=== PATIENT | male | born 1965 | race Caucasian/White ===

== ENCOUNTER 2016-06-17 19:35 | Inpatient (IN) | payer OTHER ==
[~2016-06-17] VITALS: Ht 162.5 cm; Wt 98.6 kg
--- NOTE | ~2016-06-17 | EKG ---
[place], [place] ELECTROCARDIOGRAM REPORT NAME: PASCUAL SAXENA UNIT #: [id number] ROOM: 411 DOCTOR: MARÍA EDGAR MD BIRTHDATE: [birth year] DOS: 06/17/2016 TIME: 19:55. Sinus rhythm, normal electrocardiogram. MARÍA EDGAR MD CM:EKGRPT:ELECTROCARDIOGRAM REPORT [id number] MARÍA EDGAR MD
[~2016-06-17 19:35] MED LIST: ATARAX25 MG PO; CIPRO500 MG PO; CIPRODEX 0.3%-7.5 ML OT; CYMBALTA20 MG PO; DEPAKOTE250 MG PO; FAMVIR500 MG PO; HYDROCODONE BIT1 T11 PO; KEFLEX500 MG PO; MOTRIN800 MG PO; NEURONTIN300 MG PO; NKHM; PENICILLIN VK500 MG PO; PREDNICOT20 MG PO; PROTONIX TR40 MG PO; PROTONIX40 MG PO; Peridex 473 ML473 ML PO; ROBAXIN750 MG PO; TRAMADOL HCL50 MG PO; TRANXENE7.5 MG PO; ULTRAM50 MG PO; VIBRAMYCIN100 MG PO; VICODIN 5/500 505 MG PO; ZANTAC150 MG PO; ZOLOFT100 MG PO; Zofran4 MG PO
[2016-06-17 19:52] VITALS: BP 127/81
[2016-06-17 20:09] LABS: BASO # 0.1 10*3/uL (0.0-0.1); BASO % 0.8 % (0.0-1.0); EOS # 0.3 10*3/uL (0.0-0.4); EOS % 3.9 % (1.0-4.0); HEMATOCRIT 41.8 % (42.0-52.0); HEMOGLOBIN 14.2 g/dl (14.0-18.0); IG # 0.1 10*3/uL (0.0-0.1); LYMPH # 2.4 10*3/uL (1.3-4.4); LYMPH % 27.8 % (27.0-41.0); MEAN CELL VOLUME 92.3 fl (80.0-94.0); MEAN CORPUSCULAR HGB 31.3 pg (27.0-31.0); MEAN PLATELET VOLUME 11.4 fl (9.6-12.3); MONO % 11.1 % (3.0-9.0); NEUT # 4.8 10*3/uL (2.3-7.9); NEUT % 55.6 % (47.0-73.0); PLATELET COUNT AUTOMATED 164 10*3/uL (130-400); RED BLOOD COUNT 4.53 10*6/uL (4.50-5.90); RED CELL DISTRI WIDTH 12.5 % (0-14.5); WHITE BLOOD COUNT 8.7 10*3/uL (4.8-10.8)
[2016-06-17 20:19] LABS: PROTHROMBIN TIME 10.9 SECONDS (9.0-12.4)
[2016-06-17 20:31] LABS: ALBUMIN 3.5 gm/dl (3.1-4.5); ALKALINE PHOSPHATASE 86 U/L (45-117); BILIRUBIN, TOTAL 0.3 mg/dl (0.2-1.0); BUN 13 mg/dl (7-24); CARBON DIOXIDE 27 mmol/L (21-32); CHLORIDE 106 mmol/L (98-107); CPK 121 U/L (39-308); EST GLOM FILT AFRICAN AMERICAN > 60 ml/min; GLUCOSE 103 mg/dL (65-99); MAGNESIUM 2.1 mg/dL (1.5-2.1); POTASSIUM 4.2 mmol/L (3.5-5.1); SGOT/AST 25 IU/L (3-35); SGPT/ALT 50 U/L (12-78); SODIUM 142 mmol/L (136-145); TOTAL PROTEIN 7.6 gm/dL (6.4-8.2)
[2016-06-17 20:32] LABS: CKMB 1.2 ng/ml (0.5-3.6)
[2016-06-17 20:37] LABS: TROPONIN I < 0.015 ng/ml (<0.045)
[2016-06-17 20:49] VITALS: BP 127/81
[2016-06-17 22:20] VITALS: BP 121/78
[2016-06-17 22:45] VITALS: BP 118/90
[2016-06-18] VITALS: BP 136/83
[2016-06-18 01:06] LABS: CKMB 1.1 ng/ml (0.5-3.6); CPK 105 U/L (39-308)
[2016-06-18 01:07] LABS: TROPONIN I < 0.015 ng/ml (<0.045)
[2016-06-18 06:52] LABS: BASO # 0.1 10*3/uL (0.0-0.1); BASO % 1.4 % (0.0-1.0); EOS # 0.3 10*3/uL (0.0-0.4); EOS % 4.8 % (1.0-4.0); HEMATOCRIT 42.5 % (42.0-52.0); HEMOGLOBIN 14.3 g/dl (14.0-18.0); IG # 0.1 10*3/uL (0.0-0.1); LYMPH # 1.9 10*3/uL (1.3-4.4); LYMPH % 30.2 % (27.0-41.0); MEAN CELL VOLUME 92.8 fl (80.0-94.0); MEAN CORPUSCULAR HGB 31.2 pg (27.0-31.0); MEAN CORPUSCULAR HGB CONC 33.6 g/dl (33.0-37.0); MEAN PLATELET VOLUME 10.8 fl (9.6-12.3); MONO # 0.9 10*3/uL (0.1-1.0); MONO % 14.3 % (3.0-9.0); NEUT # 3.1 10*3/uL (2.3-7.9); NEUT % 47.9 % (47.0-73.0); PLATELET COUNT AUTOMATED 156 10*3/uL (130-400); RED BLOOD COUNT 4.58 10*6/uL (4.50-5.90); RED CELL DISTRI WIDTH 12.6 % (0-14.5); WHITE BLOOD COUNT 6.4 10*3/uL (4.8-10.8)
[2016-06-18 07:11] LABS: ALBUMIN 3.5 gm/dl (3.1-4.5); BUN 11 mg/dl (7-24); CARBON DIOXIDE 26 mmol/L (21-32); CHLORIDE 106 mmol/L (98-107); GLUCOSE 85 mg/dL (65-99); POTASSIUM 4.1 mmol/L (3.5-5.1); SODIUM 142 mmol/L (136-145)
[2016-06-18 07:18] LABS: HEMOGLOBIN A1c 6.2 % (4.8-5.6)
[2016-06-18 07:22] LABS: ALKALINE PHOSPHATASE 84 U/L (45-117); BILIRUBIN, TOTAL 0.4 mg/dl (0.2-1.0); CHOLESTEROL 177 mg/dL (<200); EST GLOM FILT AFRICAN AMERICAN > 60 ml/min; FREE T4 0.87 ng/dl (0.76-1.46); HDL CHOLESTEROL 34 mg/dl (40-60); LDL CHOLESTEROL 97 mg/dL (9-159); MAGNESIUM 2.1 mg/dL (1.5-2.1); PROTHROMBIN TIME 10.8 SECONDS (9.0-12.4); SGOT/AST 17 IU/L (3-35); SGPT/ALT 45 U/L (12-78); TOTAL PROTEIN 7.5 gm/dL (6.4-8.2); TRIGLYCERIDES 230 mg/dl (<150); VLDL CHOLESTEROL 46 mg/dL (6-40)
[2016-06-18 08:00] VITALS: BP 118/70; BP 122/76
[2016-06-18 08:01] LABS: CPK 90 U/L (39-308)
[2016-06-18 08:14] LABS: TROPONIN I < 0.015 ng/ml (<0.045)
[2016-06-18 08:51] LABS: VITAMIN D, 25-HYDROXY 26.7 ng/mL (30-100)
[2016-06-18 08:52] LABS: FOLIC ACID 13.8 ng/mL (>5.38)
[2016-06-18] MEDS ORDERED: ATORVASTATIN CA20 M1 PO (09:44)
[2016-06-18] MEDS ORDERED: VISTARIL50 MG PO (09:45)
[2016-06-18] MEDS ORDERED: VITAMIN D50000 UNIT PO (09:45)
[2016-06-18] MEDS ORDERED: CYMBALTA60 MG PO (09:46)
[2016-06-18] MEDS ORDERED: DIVALPROEX SOD500 MG PO (09:47)
[2016-06-18 12:00] VITALS: BP 126/72
[2016-06-18 12:06] LABS: CKMB 0.9 ng/ml (0.5-3.6); CPK 78 U/L (39-308)
[2016-06-18 12:09] LABS: TROPONIN I < 0.015 ng/ml (<0.045)
== END 2016-06-18 13:20 | disposition home or self-care (01) | DRG 880 ==
LOC: ED 19:35 → 4E 21:35 → EDHOLD 21:35 → 4E 21:59
PROVIDERS: Emergency Medicine Emergency Medical Services; Hospitalist
DX: F41.9 Anxiety disorder, unspecified (principal); E66.9 Obesity, unspecified; F43.10 Post-traumatic stress disorder, unspecified; K21.9 Gastro-esophageal reflux disease without esophagitis; Z68.37 Body mass index [BMI] 37.0-37.9, adult; Z87.442 Personal history of urinary calculi; Z79.899 Other long term (current) drug therapy; Z86.19 Personal history of other infectious and parasitic diseases; Z90.49 Acquired absence of other specified parts of digestive tract

== ENCOUNTER 2017-11-28 09:35 | Emergency (ER) | payer SELFPAY ==
[~2017-11-28] VITALS: Ht 172.7 cm; Wt 88.5 kg
[~2017-11-28 09:35] MED LIST changes: +ATORVASTATIN CA20 M1 PO; +CYMBALTA60 MG PO; +DIVALPROEX SOD500 MG PO; +VISTARIL50 MG PO; +VITAMIN D50000 UNIT PO
[2017-11-28 09:36] VITALS: BP 157/79
== END 2017-11-28 10:59 | disposition home or self-care (01) ==
LOC: ED 09:35
DX: S30.813A Abrasion of scrotum and testes, initial encounter (principal); K21.9 Gastro-esophageal reflux disease without esophagitis; R03.0 Elevated blood-pressure reading, without diagnosis of hypertension; E66.9 Obesity, unspecified; Z90.49 Acquired absence of other specified parts of digestive tract; Z68.39 Body mass index [BMI] 39.0-39.9, adult; X58.XXXA Exposure to other specified factors, initial encounter; Y93.89 Activity, other specified; Y92.89 Other specified places as the place of occurrence of the external cause; Y99.8 Other external cause status

== ENCOUNTER 2024-04-08 06:59 | Emergency (ER) | payer SELFPAY ==
[~2024-04-08] VITALS: Ht 167.6 cm; Wt 105.8 kg
[2024-04-08 07:05] VITALS: BP 131/99
[2024-04-08] MEDS ORDERED: DIAZEPAM 10 MG/2 ML SYR IV ONE (07:20)
[2024-04-08] MEDS ORDERED: SODIUM CHLORIDE 0.9% 1,000 ML IV ONE (07:20)
[2024-04-08 07:43] LABS: BASO # 0.1 10*3/uL (0.0-0.1); BASO % 1.1 % (0.0-1.0); EOS # 0.4 10*3/uL (0.0-0.4); EOS % 5.9 % (1.0-4.0); MEAN CELL VOLUME 91.5 fl (80.0-94.0); MEAN CORPUSCULAR HGB 30.6 pg (27.0-31.0); MEAN CORPUSCULAR HGB CONC 33.5 g/dl (33.0-37.0); MEAN PLATELET VOLUME 10.6 fl (9.6-12.3); MONO # 0.9 10*3/uL (0.1-1.0); MONO % 12.9 % (3.0-9.0); NEUT # 3.7 10*3/uL (2.3-7.9); NEUT % 52.9 % (47.0-73.0); PLATELET COUNT AUTOMATED 160 10*3/uL (130-400); RED BLOOD COUNT 5.03 10*6/uL (4.50-5.90); RED CELL DISTRI WIDTH 12.5 % (0-14.5)
[2024-04-08 08:05] LABS: BUN 9 mg/dl (9-23); CHLORIDE 101 mmol/L (98-107); POTASSIUM 4.4 mmol/L (3.4-5.1)
[2024-04-08] MEDS ORDERED: METFORMIN HYD1000 MG PO (08:19)
== END 2024-04-08 15:35 | disposition home or self-care (01) ==
LOC: ED 06:59
PROVIDERS: Emergency Medicine
DX: F41.9 Anxiety disorder, unspecified (principal); E11.9 Type 2 diabetes mellitus without complications; F32.A Depression, unspecified; K21.9 Gastro-esophageal reflux disease without esophagitis; Z87.442 Personal history of urinary calculi; Z98.890 Other specified postprocedural states; Z90.49 Acquired absence of other specified parts of digestive tract

== ENCOUNTER → 2024-05-23 | Outpatient (CLI) | payer SELFPAY ==
[~2024-05-23] MED LIST changes: +METFORMIN HYD1000 MG PO
[2024-05-23 15:52] LABS: CHOLESTEROL 214 mg/dL (<200); LDL CHOLESTEROL 103 mg/dL (9-159); TRIGLYCERIDES 358 mg/dl (<150)
== END | disposition home or self-care (01) ==
LOC: RESCLI 13:11 → LAB 13:11
PROVIDERS: ATTEND Internal Medicine
DX: E11.9 Type 2 diabetes mellitus without complications (principal)

== ENCOUNTER 2024-12-15 07:10 | Emergency (ER) | payer OTHER ==
[~2024-12-15] VITALS: Ht 172.7 cm
[2024-12-15] MEDS ORDERED: Ondansetron Hydrochloride 4 MG/2 ML VIAL IV ONE ×2 (07:45→09:25)
[2024-12-15] MEDS ORDERED: SODIUM CHLORIDE 0.9% 500 ML IV ONE (07:45)
[2024-12-15 08:12] LABS: BILIRUBIN Negative (Negative); BLOOD Trace-Lysed (Negative); CLARITY Clear (Clear); COLOR Yellow (Yellow); KETONE Negative (Negative); LEUKO ESTERASE Negative (Negative); NITRITE Negative (Negative); PH 5.5 (4.5-8.0); SPECIFIC GRAVITY 1.015 (1.001-1.030); UROBILINOGEN 0.2 E.U./dl (0.0-1.0)
[2024-12-15 08:12] LABS: BASO # 0.1 10*3/uL (0.0-0.1); BASO % 1.5 % (0.0-1.0); EOS # 0.6 10*3/uL (0.0-0.4); EOS % 7.5 % (1.0-4.0); MEAN CELL VOLUME 91.4 fl (80.0-94.0); MEAN CORPUSCULAR HGB 30.8 pg (27.0-31.0); MEAN PLATELET VOLUME 10.7 fl (9.6-12.3); MONO # 1.1 10*3/uL (0.1-1.0); MONO % 14.8 % (3.0-9.0); NEUT # 3.9 10*3/uL (2.3-7.9); NEUT % 52.1 % (47.0-73.0); NUCLEATED RED BLOOD CELL 0.0 % (0.0-0.0); NUCLEATED RED BLOOD CELL 0.0 10*3/uL (0.0-0.0); PLATELET COUNT AUTOMATED 182 10*3/uL (130-400); RED CELL DISTRI WIDTH 12.9 % (0-14.5)
[2024-12-15 08:23] LABS: BACTERIA TRACE; EPITHELIAL CELLS 0-2; MUCOUS TRACE; WBC 0-2 wbc/hpf (0-5)
[2024-12-15 08:31] LABS: BUN 15 mg/dl (9-23)
[2024-12-15] MEDS ORDERED: HYDROmorphONE Hydrochloride 0.5 MG/0.5 ML SYRINGE IV ONE (09:25)
[2024-12-15 11:41] VITALS: BP 128/86
== END 2024-12-15 11:55 | disposition short-term general hospital (02) ==
LOC: ED 07:10
PROVIDERS: Emergency Medicine
DX: N13.9 Obstructive and reflux uropathy, unspecified (principal); R10.9 Unspecified abdominal pain; R31.9 Hematuria, unspecified; N13.2 Hydronephrosis with renal and ureteral calculous obstruction; K21.9 Gastro-esophageal reflux disease without esophagitis; F41.9 Anxiety disorder, unspecified; Z87.442 Personal history of urinary calculi; Z98.890 Other specified postprocedural states

== ENCOUNTER → 2025-01-21 | Outpatient (CLI) | payer OTHER | END | disposition home or self-care (01) | LOC: CT 00:24 | PROVIDERS: ATTEND Urology | DX: K57.30 Diverticulosis of large intestine without perforation or abscess without bleeding (principal); N13.2 Hydronephrosis with renal and ureteral calculous obstruction; I70.0 Atherosclerosis of aorta; M47.817 Spondylosis without myelopathy or radiculopathy, lumbosacral region ==

== ENCOUNTER 2025-03-20 18:20 | Emergency (ER) | payer OTHER ==
[~2025-03-20] VITALS: Ht 172.7 cm; Wt 97.5 kg
[2025-03-20 19:28] VITALS: BP 199/45
[2025-03-20] MEDS ORDERED: SODIUM CHLORIDE 0.9% 1,000 ML IV ONE (19:35)
== END 2025-03-20 21:11 | disposition home or self-care (01) ==
LOC: ED 18:20
DX: R25.2 Cramp and spasm (principal); F41.9 Anxiety disorder, unspecified; K21.9 Gastro-esophageal reflux disease without esophagitis; Z87.442 Personal history of urinary calculi